=== PATIENT | male | born 1960 | race African-American/Black ===

== ENCOUNTER 2022-03-23 05:10 | Inpatient (IN) | payer MEDICARE, MEDICAID ==
[2022-03-23] VITALS (32 sets, daily range): BP systolic 97–195; BP diastolic 39–80
[~2022-03-23] VITALS: Ht 175.3 cm; Wt 76.2 kg
[~2022-03-23 05:10] MED LIST: AMYL1CAP61 PO; MIRT45TA83 PO; OXYC-104 PO
[2022-03-23 05:55] LABS: BASOPHILS % 0.9 % (0.0-2.0); EOSINOPHILS % 13.7 % (0.0-5.0); HEMATOCRIT. 44.6 % (42.0-52.0); HEMOGLOBIN. 15.3 g/dL (14.0-18.0); LYMPHOCYTES % 31.2 % (20.0-50.0); MEAN CORPUSCULAR HEMOGLOBIN 33.2 pg (28.0-32.0); MONOCYTES % 9.6 % (2.0-8.0); NEUTROPHILS % 44.6 % (40.0-76.0); PLATELET 269 x1000/uL (130-400); RED CELL DISTRIBUTION WIDTH 14.2 % (11.6-14.6)
[2022-03-23 06:03] LABS: CHLORIDE 100 mEq/L (98-107)
[2022-03-23 06:06] LABS: PARTIAL THROMBOPLASTIN TIME 28.8 sec (23.4-31.0); PROTHROMBIN TIME 10.3 sec (9.6-11.0)
[2022-03-23] MEDS ORDERED: SODIUM CHLORIDE 0.9% 1,000 ML IV SCH (06:15)
[2022-03-23] MEDS ORDERED: FOLI-43 PO (06:31)
[2022-03-23] MEDS ORDERED: TRAZ-251 PO (06:31)
[2022-03-23] MEDS ORDERED: METH-653 PO (06:31)
[2022-03-23] MEDS ORDERED: GABA-533 PO (06:31)
[2022-03-23] MEDS ORDERED: EMPA1TAB7 PO (06:31)
[2022-03-23] MEDS ORDERED: FLUO40CA8 PO (06:31)
[2022-03-23] MEDS ORDERED: OXYC-582 PO (06:31)
[2022-03-23] MEDS ORDERED: ATOR20TA65 PO (06:31)
[2022-03-23] MEDS ORDERED: LISI10TA26 PO (06:31)
[2022-03-23] MEDS ORDERED: MIRT45TA83 PO (06:35)
[2022-03-23] MEDS ORDERED: THIA100T88 PO (06:35)
[2022-03-23] MEDS ORDERED: ALBU18HF2 IH (06:35)
[2022-03-23] MEDS ORDERED: ZYDS20 PO (06:35)
[2022-03-23] MEDS ORDERED: PANT40TA51 PO (06:35)
[2022-03-23] MEDS ORDERED: GENTAMICIN SULF 40MG/ML 2ML VIAL ONE (06:47)
[2022-03-23] MEDS ORDERED: THROMBIN (BOVINE) 5000 UNITS/VIAL TOP ONE ×2 (06:47→07:46)
[2022-03-23] MEDS ORDERED: LIDOCAINE HCL 1% 10 MG/ML 10ML VIAL ONE ×2 (06:48→07:24)
[2022-03-23] MEDS ORDERED: PROPOFOL 200MG/20ML VIAL IV ONE (06:53)
[2022-03-23] MEDS ORDERED: PHENYLEPHRINE HCL 10 MG/ML 1ML (IV VIAL) IV ONE (06:53)
[2022-03-23] MEDS ORDERED: FENTANYL CITRATE/PF 50MCG/ML 2ML VIAL ONE (06:54)
[2022-03-23] MEDS ORDERED: SUCCINYLCHOLINE CHLORIDE 200MG/10ML IV ONE (07:00)
[2022-03-23] MEDS ORDERED: ROCURONIUM BROMIDE 10MG/ML VIAL 5ML IV ONE ×2 (07:01→08:47)
[2022-03-23] MEDS ORDERED: LIDOCAINE HCL 2% 5ML SYRINGE IV ONE (07:03)
[2022-03-23] MEDS ORDERED: LIDOCAINE HCL 2%/EPINEPHRINE 1:100,000 20 ML VIAL INFIL ONE (07:30)
[2022-03-23] MEDS ORDERED: HYDROMORPHONE HCL/PF 2MG/ML CPJ ONE (08:48)
[2022-03-23] MEDS ORDERED: GLYCOPYRROLATE 0.2 MG/ML 2ML VIAL ONE ×2 (10:31)
[2022-03-23] MEDS ORDERED: NEOSTIGMINE METHYLSULFATE 1MG/ML 10 ML VIAL ONE (10:32)
[2022-03-23] MEDS ORDERED: HYDROCODONE/ACETAMINOPHEN 5/325MG TABLET PO PRN ×2 (11:00→17:15)
[2022-03-23] MEDS ORDERED: MORPHINE SULFATE 4 MG/ML CPJ (NOT FOR IM USE) IV PRN (11:00)
[2022-03-23] MEDS ORDERED: HYDROMORPHONE HCL/PF 2MG/ML CPJ IV PRN (11:30)
[2022-03-23] MEDS: DEXT 5%/LACTATED RINGERS 1,000 ML IV SCH ×2 (11:31→19:44)
[2022-03-23] MEDS ORDERED: ONDANSETRON HCL 4MG/2ML INJ ONE (11:32)
[2022-03-23] MEDS ORDERED: NALOXONE HCL 0.4MG/ML VIAL IV PRN (11:45)
[2022-03-23] MEDS ORDERED: NICARDIPINE 100 MG in SODIUM CHLORIDE 0.9% 60 ML IV PRN (12:00)
[2022-03-23] MEDS ORDERED: HYDROMORPHONE HCL/PF 2MG/ML CPJ IV SCH (13:45)
[2022-03-23] MEDS: CEFAZOLIN 1000MG PREMIX 50 ML IV SCH ×2 (13:52→21:57)
[2022-03-23] MEDS ORDERED: CEFAZOLIN SODIUM 1000MG/VIAL IV SCH (14:00)
[2022-03-23] MEDS: HYDROMORPHONE HCL/PF 2MG/ML CPJ IV PRN ×3 (15:51→21:57)
[2022-03-23] MEDS ORDERED: OXYCODONE HCL/ACETAMINOPHEN 5/325MG TABLET PO PRN (18:30)
[2022-03-23] MEDS: OXYCODONE HCL/ACETAMINOPHEN 5/325MG TABLET PO PRN (19:55)
[2022-03-23] MEDS: CYCLOBENZAPRINE 10MG TABLET PO PRN (21:15)
[2022-03-23] MEDS ORDERED: IPRATROPIUM/ALBUTEROL 0.5-3(2.5)MG/3ML NEB HHN PRN (21:30)
[2022-03-24] VITALS (20 sets, daily range): BP systolic 97–122; BP diastolic 44–65
[2022-03-24] MEDS: OXYCODONE HCL/ACETAMINOPHEN 5/325MG TABLET PO PRN ×2 (00:07→05:08)
[2022-03-24] MEDS: HYDROMORPHONE HCL/PF 2MG/ML CPJ IV PRN ×8 (01:04→22:34)
[2022-03-24] MEDS: DEXT 5%/LACTATED RINGERS 1,000 ML IV SCH (03:08)
[2022-03-24] MEDS: CEFAZOLIN 1000MG PREMIX 50 ML IV SCH ×3 (05:14→22:51)
[2022-03-24 06:10] LABS: CHLORIDE 98 mEq/L (98-107)
[2022-03-24] MEDS ORDERED: NALOXONE HCL 0.4MG/ML VIAL IV PRN (07:30)
[2022-03-24] MEDS: OXYCODONE HCL 5MG TABLET PO PRN ×3 (07:53→21:04)
[2022-03-24] MEDS: CYCLOBENZAPRINE 10MG TABLET PO PRN ×2 (09:36→21:29)
[2022-03-24 10:53] LABS: BASOPHILS % 0.7 % (0.0-2.0); EOSINOPHILS % 5.6 % (0.0-5.0); HEMATOCRIT. 36.2 % (42.0-52.0); HEMOGLOBIN. 12.2 g/dL (14.0-18.0); LYMPHOCYTES % 13.8 % (20.0-50.0); MEAN CORPUSCULAR HEMOGLOBIN 32.7 pg (28.0-32.0); MEAN PLATELET VOLUME 7.8 fl (7.4-10.4); MONOCYTES % 14.3 % (2.0-8.0); NEUTROPHILS % 65.6 % (40.0-76.0); PLATELET 234 x1000/uL (130-400); RED BLOOD CELL COUNT 3.73 mill/uL (4.7-6.1)
[2022-03-25] VITALS: BP 102/63
[2022-03-25] MEDS ORDERED: DOCU-138 MT (00:54)
[2022-03-25] MEDS ORDERED: MOM MT (00:54)
[2022-03-25] MEDS: HYDROMORPHONE HCL/PF 2MG/ML CPJ IV PRN ×4 (01:40→19:25)
[2022-03-25] MEDS: OXYCODONE HCL 5MG TABLET PO PRN ×4 (03:17→21:39)
[2022-03-25 04:00] VITALS: BP 114/64
[2022-03-25] MEDS: CEFAZOLIN 1000MG PREMIX 50 ML IV SCH (05:09)
[2022-03-25 07:35] LABS: BASOPHILS % 0.4 % (0.0-2.0); EOSINOPHILS % 1.4 % (0.0-5.0); HEMATOCRIT. 35.8 % (42.0-52.0); HEMOGLOBIN. 12.4 g/dL (14.0-18.0); LYMPHOCYTES % 13.8 % (20.0-50.0); MEAN CORPUSCULAR HEMOGLOBIN 33.3 pg (28.0-32.0); MEAN CORPUSCULAR VOLUME 96.6 fL (80.0-94.0); MEAN PLATELET VOLUME 8.3 fl (7.4-10.4); MONOCYTES % 13.3 % (2.0-8.0); NEUTROPHILS % 71.1 % (40.0-76.0); PLATELET 231 x1000/uL (130-400); RED BLOOD CELL COUNT 3.71 mill/uL (4.7-6.1); RED CELL DISTRIBUTION WIDTH 13.6 % (11.6-14.6)
[2022-03-25 08:20] LABS: CHLORIDE 95 mEq/L (98-107)
[2022-03-25 12:00] VITALS: BP 107/69
[2022-03-25 16:00] VITALS: BP 116/66
[2022-03-25] MEDS: POLYETHYLENE GLYCOL 3350 (17GM) 1 DOSE PACK PO SCH (17:15)
[2022-03-25] MEDS: TRAZODONE HCL 50MG TABLET PO SCH (20:11)
[2022-03-25 20:32] VITALS: BP 124/69
[2022-03-26 00:02] VITALS: BP 132/70
[2022-03-26] MEDS: HYDROMORPHONE HCL/PF 2MG/ML CPJ IV PRN ×7 (02:57→23:29)
[2022-03-26] MEDS: OXYCODONE HCL 5MG TABLET PO PRN ×3 (05:48→18:07)
[2022-03-26 06:31] VITALS: BP 136/60
[2022-03-26 08:00] VITALS: BP 128/75
[2022-03-26] MEDS: POLYETHYLENE GLYCOL 3350 (17GM) 1 DOSE PACK PO SCH (08:19)
[2022-03-26] MEDS ORDERED: LACTULOSE 20G/30ML UDC PO SCH (09:00)
[2022-03-26 12:00] VITALS: BP 114/76
[2022-03-26 16:00] VITALS: BP 115/81
[2022-03-26 20:11] VITALS: BP 127/89
[2022-03-26] MEDS: TRAZODONE HCL 50MG TABLET PO SCH (20:23)
[2022-03-27] VITALS (7 sets, daily range): BP systolic 94–117; BP diastolic 51–74
[2022-03-27] MEDS: OXYCODONE HCL 5MG TABLET PO PRN ×3 (00:18→18:08)
[2022-03-27] MEDS: HYDROMORPHONE HCL/PF 2MG/ML CPJ IV PRN ×6 (02:50→20:24)
[2022-03-27] MEDS: POLYETHYLENE GLYCOL 3350 (17GM) 1 DOSE PACK PO SCH (09:00)
[2022-03-27] MEDS: TRAZODONE HCL 50MG TABLET PO SCH (20:28)
[2022-03-28] VITALS: BP 105/60
[2022-03-28] MEDS: OXYCODONE HCL 5MG TABLET PO PRN ×4 (00:14→19:51)
[2022-03-28] MEDS: HYDROMORPHONE HCL/PF 2MG/ML CPJ IV PRN ×4 (02:47→22:24)
[2022-03-28 04:00] VITALS: BP 101/66
[2022-03-28 08:00] VITALS: BP 117/71
[2022-03-28] MEDS: POLYETHYLENE GLYCOL 3350 (17GM) 1 DOSE PACK PO SCH (09:09)
[2022-03-28] MEDS ORDERED: SODIUM CHLORIDE 0.9% 100 ML IV ONE (10:30)
[2022-03-28 12:00] VITALS: BP 118/72
[2022-03-28 16:00] VITALS: BP 102/65
[2022-03-28 20:00] VITALS: BP 116/71
[2022-03-28] MEDS: TRAZODONE HCL 50MG TABLET PO SCH (22:16)
[2022-03-29] VITALS: BP 105/57
[2022-03-29 04:00] VITALS: BP 143/81
[2022-03-29] MEDS: OXYCODONE HCL 5MG TABLET PO PRN ×3 (04:17→17:42)
[2022-03-29 08:00] VITALS: BP 109/59
[2022-03-29] MEDS: POLYETHYLENE GLYCOL 3350 (17GM) 1 DOSE PACK PO SCH (08:23)
[2022-03-29] MEDS: HYDROMORPHONE HCL/PF 2MG/ML CPJ IV PRN ×3 (08:23→22:39)
[2022-03-29 12:00] VITALS: BP 102/58
[2022-03-29 20:00] VITALS: BP 98/62
[2022-03-29] MEDS: TRAZODONE HCL 50MG TABLET PO SCH (21:16)
[2022-03-30] VITALS (7 sets, daily range): BP systolic 100–121; BP diastolic 56–70
[2022-03-30] MEDS: OXYCODONE HCL 5MG TABLET PO PRN ×3 (00:22→16:38)
[2022-03-30] MEDS: HYDROMORPHONE HCL/PF 2MG/ML CPJ IV PRN ×3 (07:18→21:02)
[2022-03-30] MEDS: POLYETHYLENE GLYCOL 3350 (17GM) 1 DOSE PACK PO SCH (09:53)
[2022-03-30] MEDS ORDERED: LACTULOSE 20G/30ML UDC PO PRN (13:15)
[2022-03-30] MEDS ORDERED: BISACODYL 10MG SUPP PR NR (14:15)
[2022-03-30] MEDS ORDERED: NA PHOS,M-B/NA PHOS,DI-BA ENEMA 118ML PR PRN (14:30)
[2022-03-30] MEDS: TRAZODONE HCL 50MG TABLET PO SCH (21:31)
== END 2022-03-30 22:20 | DRG 460 ==
LOC: OR 05:10 → MICUNO 11:25 → 6EST 03-24 11:30
PROVIDERS: ADMIT Neurological Surgery; ATTEND Neurological Surgery
PROC: 0SG0071 Fusion of Lumbar Vertebral Joint with Autologous Tissue Substitute, Posterior Approach, Posterior Column, Open Approach (ICD-10-PCS; principal; 2022-03-23)
PROC: 0QP004Z Removal of Internal Fixation Device from Lumbar Vertebra, Open Approach (ICD-10-PCS; 2022-03-23)
PROC: 0QP104Z Removal of Internal Fixation Device from Sacrum, Open Approach (ICD-10-PCS; 2022-03-23)
PROC: 01NB0ZZ Release Lumbar Nerve, Open Approach (ICD-10-PCS; 2022-03-23)
DX: M48.061 Spinal stenosis, lumbar region without neurogenic claudication (principal); F11.20 Opioid dependence, uncomplicated; G82.20 Paraplegia, unspecified; M43.16 Spondylolisthesis, lumbar region; F41.9 Anxiety disorder, unspecified; F17.210 Nicotine dependence, cigarettes, uncomplicated; E78.5 Hyperlipidemia, unspecified; D53.9 Nutritional anemia, unspecified; M51.16 Intervertebral disc disorders with radiculopathy, lumbar region; R73.9 Hyperglycemia, unspecified; M47.26 Other spondylosis with radiculopathy, lumbar region; R26.9 Unspecified abnormalities of gait and mobility; D72.10 Eosinophilia, unspecified; S34.109S Unspecified injury to unspecified level of lumbar spinal cord, sequela; G89.4 Chronic pain syndrome; K59.00 Constipation, unspecified; M65.332 Trigger finger, left middle finger; M65.331 Trigger finger, right middle finger; Z82.49 Family history of ischemic heart disease and other diseases of the circulatory system; X58.XXXA Exposure to other specified factors, initial encounter; Y93.89 Activity, other specified; Y92.89 Other specified places as the place of occurrence of the external cause; Y99.8 Other external cause status
CPT/HCPCS: 36415; 71045; 72100; 76000; 80048; 85025; 86850; 86900; 87426; 88300; 95863; 95925; 95926; 95928; 95929; 97116; 97162; 97166; 97530; 97535; C1713; C1893; C9803; J0330; J0690; J1170; J1580; J2270; J2370; J2405; J2704; J2710; J3010; J3490; J7121; L3908; C1762